=== PATIENT | male | born 1995 | race Caucasian/White ===

== ENCOUNTER 2017-05-12 14:50 | Emergency (ER) | payer BC, OTHER ==
[2017-05-12 14:54] VITALS: BP 151/92; PULSE 87; TEMP 98.2; BMI 24.4
--- NOTE | 2017-05-12 16:04 | PDOC ---
History of Present Illness - General Chief Complaint: Respiratory Stated Complaint: DIFFICULTY BREATHING Time Seen by Provider: 05/12/17 15:35 History Source: Patient Exam Limitations: No Limitations - History of Present Illness Initial Comments: 05/12/17 16:24 My Chief Complaint: Chest tightness left sided intermittent 3 days with no shortness of breath feels as if he's not taking in air adequately History of present illness: Patient is a 21-year-old male with no significant medical history here today complaining of left chest tightness intermittently 3 days with no shortness of breath, but sensation of something blocking his ability to exhale only at work. Patient reports that AC did not feel as strong as it didn't previous years when he worked there. Patient currently is not short of breath does not have any sensation of something blocking his airway. 05/12/17 16:36 Timing/Duration: intermittent (for 3 days ) Severity: mild Associated Symptoms: reports: other (left chest tightness intermittent for 3 days ). denies: cough Past History - Past Medical History Allergies/Adverse Reactions: Allergies Allergy/AdvReac Type Severity Reaction Status Date / Time No Known Allergies Allergy Verified 05/12/17 14:54 Home Medications: Ambulatory Orders NK [No Known Home Medication] 05/12/17 Other medical history: NONE - Psycho/Social/Smoking Cessation Hx Anxiety: No Suicidal Ideation: No Smoking History: Never smoked Hx Alcohol Use: No Drug/Substance Use Hx: No Substance Use Type: None Review of Systems - Review of Systems Constitutional: No: Symptoms Reported HEENTM: No: Symptoms Reported Respiratory: No: Symptoms reported Cardiac (ROS): Yes: Chest Tightness (left sided intermittent for 3 days 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 negative: Chest Tender, Respiratory Distress Cardiovascular: positive: Regular Rhythm, Regular Rate, S1, S2 Gastrointestinal/Abdominal: positive: Normal Bowel Sounds, Soft. negative: Tender, Organomegaly, Pulsatile Mass, Increased Bowel Sounds, Distended, Guarding, Rebound, Tenderness, Hepatomegaly, Spleenomegaly Extremity: positive: Normal Capillary Refill, Normal Inspection, Normal Range of Motion. negative: Tender, Swelling Integumentary: positive: Normal Color Neurologic: positive: Alert, Normal Response, Responsive Heart Score/ECG Review - ECG Impressions Comment:: 05/12/17 16:[address] Ferguson ventr rat 74 ED Treatment Course - RADIOLOGY Radiology Studies Ordered: Category Date Time Status CHEST PA & LAT [RAD] Stat Radiology 05/12/17 15:51 Ordered Medical Decision Making - Medical Decision Making 05/12/17 16:44 Patient is a 21-year-old male with no significant medical history here today complaining of left chest tightness intermittently 3 days with no shortness of breath, but sensation of something blocking his ability to exhale only at work. Patient reports that AC did not feel as strong as it didn't previous years when he worked there. Patient currently is not short of breath does not have any sensation of something blocking his airway. Patient has not had any surgeries, is not on hormone replacement has not been tachycardic or short of breath does not have any swelling of his lower extremities is in no apparent distress currently is not short of breath and does not have any chest pain. He denies ever having any symptoms in the past. Chest discomfort R/O cardiac arrythmia R/O abnormal chest xray PLAN: EKG wnls reviewed by Dr. Ferguson xray chest PA/lateral no acute pathology per Dr. 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
--- NOTE | 2017-05-13 12:28 | EKG ---
Test Reason : Blood Pressure : / mmHG Vent. Rate : 074 BPM Atrial Rate : 074 BPM P-R Int : 140 ms QRS Dur : 094 ms QT Int : 374 ms P-R-T Axes : 051 069 049 degrees QTc Int : 415 ms NORMAL SINUS RHYTHM WITH SINUS ARRHYTHMIA NORMAL ECG NO PREVIOUS ECGS AVAILABLE Confirmed by GRETCHEN DEE, MARY ([id number]) on 05/13/2017 12:27:51 PM Referred By: ZELAL[facility] Confirmed By:MARY GODINEZ MD
== END 2017-05-12 16:49 | disposition home or self-care (01) ==
LOC: JERFT 14:50
DX: R07.89 Other chest pain (principal)
CPT/HCPCS: 71020-TC; 93005; 93010; 99281-25

== ENCOUNTER 2018-12-13 05:52 | Emergency (ER) | payer OTHER ==
[2018-12-13 07:03] VITALS: TEMP 97.6; BMI 24.5
[2018-12-13] MEDS ORDERED: SODIUM CHLORIDE 1,000 ML IV STA (07:32)
[2018-12-13] MEDS ORDERED: ONDANSETRON 4 MG/2 ML VIAL IVPUSH ONE (07:33)
--- NOTE | 2018-12-13 07:37 | PDOC ---
History of Present Illness - General Chief Complaint: Nausea/Vomiting Stated Complaint: VOMITING Time Seen by Provider: 12/13/18 07:21 History Source: Patient - History of Present Illness Timing/Duration: reports: constant Past History - Past Medical History Allergies/Adverse Reactions: Allergies Allergy/AdvReac Type Severity Reaction Status Date / Time No Known Allergies Allergy Verified 12/13/18 07:03 Home Medications: Ambulatory Orders Ondansetron HCl [Zofran] 4 mg PO Q8H #12 tablet 12/13/18 - Suicide/Smoking/Psychosocial Hx Smoking History: Never smoked Have you smoked in the past 12 months: No Information on smoking cessation initiated: No Hx Alcohol Use: No Drug/Substance Use Hx: No Substance Use Type: None Review of Systems - Review of Systems Constitutional: Yes: Weakness. No: Chills, Fever ABD/GI: Yes: Nausea, Vomiting. No: Diarrhea, Abdominal cramping *Physical Exam - Vital Signs Last Vital Signs Temp Pulse Resp BP Pulse Ox 97.6 F 106 H 19 122/83 100 12/13/18 05:52 12/13/18 05:52 12/13/18 05:52 12/13/18 05:52 12/13/18 05:52 - Physical Exam General Appearance: Yes: Appropriately Dressed, Moderate Distress HEENT: positive: Normal Voice Respiratory/Chest: negative: Respiratory Distress Gastrointestinal/Abdominal: positive: Normal Bowel Sounds, Soft. negative: Tender, Distended, Guarding, Rebound Integumentary: positive: Dry, Warm Neurologic: positive: Fully Oriented, Alert, Normal Mood/Affect Moderate Sedation - Procedure Monitoring Vital Signs: Procedure Monitoring Vital Signs Temperature 97.6 F 12/13/18 05:52 Pulse Rate 106 H 12/13/18 05:52 Respiratory Rate 19 12/13/18 05:52 Blood Pressure 122/83 12/13/18 05:52 O2 Sat by Pulse Oximetry (%) 100 12/13/18 05:52 ED Treatment Course - LABORATORY CBC & Chemistry Diagram: 12/13/18 08:00 12/13/18 08:00 Medical Decision Making - Medical Decision Making 12/13/18 07:33 23-year-old male, denies any past medical history, here with intractable nausea and vomiting since 2 AM today. No hematemesis, abdominal pain, diarrhea or fever but does report chills. Patient reports eating from a [employer] at some point prior to onset of symptoms and states he's never eaten from restaurant before. States his girlfriend also ate same and without any symptoms. No recent travel or antibiotic use. No illicit drug use see exam Possible gastroenteritis No RF for serious dysentery No abdominal pain/tenderness to suggest appy at this time Tachy to 106 and aroldo ill -IVF -zofran -labs -reassess 12/13/18 07:36 12/13/18 09:13 Labs unremarkable. Pt sig improved and able to serina po here. Will dc w/ supportive tx. Reason to return d/w pt *DC/Admit/Observation/Transfer Diagnosis at time of Disposition: Nausea & vomiting Qualifiers: Vomiting type: unspecified Vomiting Intractability: intractable Qualified Code( s): R11.2 - Nausea with vomiting, unspecified - Discharge Dispostion Disposition: HOME Condition at time of disposition: Improved - Prescriptions Prescriptions: Ondansetron HCl [Zofran] 4 mg PO Q8H #12 tablet - Referrals Referrals: Nichol Trevino MD [Primary Care Provider] - - Patient Instructions Printed Discharge Instructions: Viral Gastroenteritis Additional Instructions: Your symptoms are most likely viral. Rest, drink plenty fluids and take medications as directed. Return for worsening of symptoms - Post Discharge Activity Forms/Work/School Notes: Back to Work
[2018-12-13] MEDS ORDERED: ONDANSETRON 4 MG/2 ML VIAL ONE (07:45)
[2018-12-13 08:19] LABS: BASO % 0.5 % (0-2.0); EOS % 0.1 % (0-4.5); HEMOGLOBIN 17.7 GM/dL (11.7-16.9); LYMPH % 2.2 % (8-40); MCH 31.5 pg (25.7-33.7); MCHC 35.5 g/dl (32.0-35.9); MEAN CELL VOLUME 88.8 fl (80-96); MEAN PLT VOLUME 8.6 fl (7.5-11.1); MONO % 2.8 % (3.8-10.2); NEUT % 94.4 % (42.8-82.8); PLATELET COUNT 176 K/MM3 (134-434); RBC 5.63 M/mm3 (4.00-5.60); WHITE BLOOD COUNT 9.5 K/mm3 (4.0-10.0)
[2018-12-13 08:40] LABS: ALBUMIN 4.8 g/dl (3.4-5.0); ALK PHOS 85 U/L (45-117); ANION GAP 11 MMOL/L (8-16); BILIRUBIN,TOTAL 2.2 mg/dL (0.2-1); BLOOD UREA NITROGEN 14 mg/dL (7-18); CALCIUM 9.5 mg/dL (8.5-10.1); CHLORIDE 103 mmol/L (98-107); CO2 27 mmol/L (21-32); GLUCOSE,RANDOM 107 mg/dL (74-106); LIPASE 100 U/L (73-393); POTASSIUM 3.6 mmol/L (3.5-5.1); SGOT/AST 25 U/L (15-37); SGPT/ALT 22 U/L (13-61); SODIUM 141 mmol/L (136-145); TOT PROT 8.2 g/dl (6.4-8.2)
[2018-12-13 09:28] VITALS: BP 134/61; PULSE 61
[2018-12-13 14:07] LABS: PLATELET ESTIMATE NORMAL
== END 2018-12-13 09:28 | disposition home or self-care (01) ==
LOC: JER 05:52
PROC: 3E0337Z Introduction of Electrolytic and Water Balance Substance into Peripheral Vein, Percutaneous Approach (ICD-10-PCS; principal; 2018-12-13)
PROC: 3E033GC Introduction of Other Therapeutic Substance into Peripheral Vein, Percutaneous Approach (ICD-10-PCS; 2018-12-13)
DX: A08.4 Viral intestinal infection, unspecified (principal); B97.89 Other viral agents as the cause of diseases classified elsewhere
CPT/HCPCS: 36415; 80053; 83690; 85025; 96361; 96374; 99282-25; J7030

== ENCOUNTER 2019-06-11 08:50 | Emergency (ER) | payer OTHER ==
[2019-06-11 09:17] VITALS: BP 120/82; PULSE 88; TEMP 98.4; BMI 21.4
[2019-06-11] MEDS ORDERED: IBUPROFEN 600 MG TABLET (FP) PO ONE ×2 (09:21→09:23)
--- NOTE | 2019-06-11 09:29 | PDOC ---
History of Present Illness - General Chief Complaint: Pain Stated Complaint: FALL / LT ANKLE PAIN Time Seen by Provider: 06/11/19 09:19 History Source: Patient Exam Limitations: No Limitations - History of Present Illness Initial Comments: 06/11/19 09:22 Walking down flight of stairs, missed a step and inverted left ankle. Complaints of pain, swelling to lateral ankle and midfoot. Occurred: reports: just prior to arrival, this morning Severity: reports: moderate Pain Location: reports: lower extremity (left ankle ) Method of Injury: Yes: fall Modifying Factors: improves with: None, cold therapy Loss of Consciousness: no loss of consciousness Associated Symptoms (Fall): denies symptoms Past History - Travel Traveled outside of the country in the last 30 days: No Close contact w/someone who was outside of country & ill: No - Past Medical History Allergies/Adverse Reactions: Allergies Allergy/AdvReac Type Severity Reaction Status Date / Time No Known Allergies Allergy Verified 06/11/19 09:17 Home Medications: Ambulatory Orders NK [No Known Home Medication] 06/11/19 COPD: No - Suicide/Smoking/Psychosocial Hx Smoking History: Never smoked Have you smoked in the past 12 months: No Hx Alcohol Use: No Drug/Substance Use Hx: No Substance Use Type: None Review of Systems - Review of Systems Able to Perform ROS?: Yes Is the patient limited Slovenian proficient: Yes Constitutional: Yes: See HPI. No: Symptoms Reported, Fever, Malaise HEENTM: Yes: See HPI. No: Symptoms Reported Respiratory: Yes: See HPI. No: Symptoms reported Musculoskeletal: Yes: Symptoms Reported, See HPI, Joint Pain, Joint Swelling Integumentary: Yes: See HPI, Bruising. No: Symptoms Reported All Other Systems: Reviewed and Negative *Physical Exam - Vital Signs Last Vital Signs Temp Pulse Resp BP Pulse Ox 98.4 F 88 18 120/82 98 06/11/19 09:13 06/11/19 09:13 06/11/19 09:13 06/11/19 09:13 06/11/19 09:13 - Physical Exam General Appearance: Yes: Nourished, Appropriately Dressed, Apparent Distress, Mild Distress HEENT: positive: EMMA, Normal ENT Inspection, TMs Normal, Pharynx Normal Neck: positive: Supple. negative: Tender Extremity: positive: Normal Capillary Refill, Swelling (with point tenderness to the lateral malleolus and fifth metatarsal. Has swelling and range of motion is diminished secondary to this pain. Neurovascular intact to toes, negative squeeze test, medial malleoli or and navicular bone intact.). negative: Normal Inspection, Normal Range of Motion, Calf Tenderness Integumentary: positive: Normal Color, Dry, Warm Neurologic: positive: lumber checker II-XII NML intact, Fully Oriented, Alert, Normal Mood/ Affect, Normal Response, Motor Strength /5 ED Treatment Course - RADIOLOGY Radiology Studies Ordered: Category Date Time Status ANKLE-LEFT [RAD] Stat Radiology 06/11/19 09:21 Ordered Progress Note - Progress Note Progress Note: X-ray negative for fractures or dislocations, Kishan, Aircast and crutches provided for sprain. And will follow-up with orthopedist this week *DC/Admit/Observation/Transfer Diagnosis at time of Disposition: Left ankle sprain Qualifiers: Encounter type: initial encounter Involved ligament of ankle: unspecified ligament Qualified Code(s): S93.402A - Sprain of unspecified ligament of left ankle, initial encounter - Discharge Dispostion Disposition: HOME Condition at time of disposition: Stable Decision to Admit order: No - Referrals Referrals: Bladimir Mendiola MD [Staff Physician] - - Patient Instructions Printed Discharge Instructions: DI for Ankle Sprain Additional Instructions: Rest, ice to area on and off for 15 minutes 4-6 times a day Avoid heavy lifting or exercise until pain and swelling is resolved or until further directed Keep area highly elevated to reduce swelling Use splints/Kishan wrap as directed Followup with orthopedist in one to 2 days if not improving, if significantly improved may wait one week for followup with orthopedist May use ibuprofen every 6 hours as needed for pain - Post Discharge Activity Forms/Work/School Notes: Back to Work
== END 2019-06-11 10:01 | disposition home or self-care (01) ==
LOC: JERFT 08:50
PROC: 2W3RX1Z Immobilization of Left Lower Leg using Splint (ICD-10-PCS; principal; 2019-06-11)
DX: S93.402A Sprain of unspecified ligament of left ankle, initial encounter (principal); X50.9XXA Other and unspecified overexertion or strenuous movements or postures, initial encounter; Y93.89 Activity, other specified; Y92.9 Unspecified place or not applicable
CPT/HCPCS: 29515; 73610-TC-LT-FY; 99283-25